=== PATIENT | male | born 1990 | race Caucasian/White ===

== ENCOUNTER 2020-01-10 21:38 | Emergency (ER) | payer BC ==
[2020-01-10] MEDS ORDERED: Diphtheria,Pertussis(Acell),Tetanus Vaccine 0.5 ML Syringe IM ONE (21:44)
--- NOTE | 2020-01-10 21:50 | EDM.PDOC ---
ED HPI GENERAL MEDICAL PROBLEM - General Chief Complaint: Laceration Stated Complaint: CUT FINGER Time Seen by Provider: 01/10/20 21:40 Source of Information: Reports: Patient History Limitations: Reports: No Limitations - History of Present Illness INITIAL COMMENTS - FREE TEXT/NARRATIVE: HISTORY AND PHYSICAL: History of present illness: Patient is a 29-year-old male who presents to the emergency room with complaints of a laceration across his right index finger. This does not involve the nailbed. He initially put some "quick clot" over it to stop the bleeding. He states he came in because he is going to have the baby shortly and did not want to "mess with it bleeding all the time". He denies any other bodily injury nor any systemic complaints. Unsure of his last tetanus update Review of systems: As per history of present illness and below otherwise all systems reviewed and negative. Past medical history: As per history of present illness and as reviewed below otherwise noncontributory. Surgical history: As per history of present illness and as reviewed below otherwise noncontributory. Social history: See social history for further information Family history: As per history of present illness and as reviewed below otherwise noncontributory. Physical exam: General: Developed and well-nourished 29-year-old male. Alert and oriented. Nontoxic-appearing and in no acute distress. HEENT: Atraumatic, normocephalic, pupils equal and reactive bilaterally, negative for conjunctival pallor or scleral icterus, mucous membranes moist, TMs normal bilaterally, throat clear, neck supple, nontender, trachea midline. No drooling or trismus noted. No meningeal signs. No hot potato voice noted. Lungs: Clear to auscultation, breath sounds equal bilaterally, chest nontender. Heart: S1S2, regular rate and rhythm without overt murmur Abdomen: Soft, nondistended, nontender. Skin: 1.5 cm laceration to the palmar surface of his right index finger. Other metcalf skin is intact, warm, dry. No lesions or rashes noted. Extremities: Atraumatic, moves all extremities per self without difficulty or deficits, negative for cords or calf pain. Neurovascular unremarkable. Neuro: Awake, alert, oriented. Cranial nerves II through XII unremarkable. Cerebellum unremarkable. Motor and sensory unremarkable throughout. Exam nonfocal. Notes: Area was thoroughly cleansed with chlorhexidine and wound wash. The quick clot material was removed from the skin. 1% lidocaine was used to anesthetize the area. Usual and customary procedures were followed for suture placement. #4 interrupted sutures were placed. Patient tolerated well. We discussed signs and symptoms that would prompt him to return to the emergency room. Follow-up and supportive care measures were reviewed and discussed. Voices understanding and is agreeable to plan of care. Denies any further questions or concerns at this time. Diagnostics: None Therapeutics: Lidocaine, Tdap Prescription: None Impression: Laceration Plan: Laceration care Definitive disposition and diagnosis as appropriate pending reevaluation and review of above. - Related Data Allergies Allergy/AdvReac Type Severity Reaction Status Date / Time No Known Allergies Allergy Verified 01/10/20 21:46 Home Meds: Home Meds . [No Known Home Meds] 01/10/20 [History] ED ROS GENERAL - Review of Systems Review Of Systems: Comprehensive ROS is negative, except as noted in HPI. ED EXAM, SKIN/RASH Exam: See Below ED SKIN PROCEDURES - Laceration/Wound Repair Right index finger Appearance: Subcutaneous, Linear Distal NVT: Neuro & Vascular Intact, No Tendon Injury Anesthetic Type: Local Local Anesthesia - Lidocaine (Xylocaine): 1% Plain Local Anesthetic Volume: 3cc Skin Prep: Chlorhexidine (Hibiciens), Saline, Sterile Drape Saline Irrigation (cc's): 50 Exploration/Debridement/Repair: Wound Explored, In a Bloodless Field, Explored to Base, No Foreign Material Found Closed with: Sutures Lac/Wound length In cm: 1.5 Suture Size: 4-0 (Chromic) # of Sutures: 4 Suture Type: Interrupted, Simple Drain Placement: No Sterile Dressing Applied: Provider Tetanus Status Addressed: Yes Complications: No Course - Orders/Labs/Meds Meds: Medications Discontinued Medications Generic Name Dose Route Start Last Admin Trade Name Mary Carmen PRN Reason Stop Dose Admin Lidocaine HCl 5 ml 01/10/20 21:39 Xylocaine-Mpf 1% INJECT 01/10/20 21:40 ONETIME ONE Departure - Departure Time of Disposition: 21:57 Disposition: Home, Self-Care 01 Clinical Impression: Laceration - Discharge Information Instructions: Laceration Care, Adult, Espk-by-Ftew Additional Instructions: The following information is given to patients seen in the emergency department who are being discharged to home. This information is to outline your options for follow-up care. We provide all patients seen in our emergency department with a follow-up referral. The need for follow-up, as well as the timing and circumstances, are variable depending upon the specifics of your emergency department visit. If you don't have a primary care physician on staff, we will provide you with a referral. We always advise you to contact your personal physician following an emergency department visit to inform them of the circumstance of the visit and for follow-up with them and/or the need for any referrals to a consulting specialist. The emergency department will also refer you to a specialist when appropriate. This referral assures that you have the opportunity for follow-up care with a specialist. All of these measure are taken in an effort to provide you with optimal care, which includes your follow-up. Under all circumstances we always encourage you to contact your private physician who remains a resource for coordinating your care. When calling for follow-up care, please make the office aware that this follow-up is from your recent emergency room visit. If for any reason you are refused follow-up, please contact the [facility] Emergency Depa rtment at and asked to speak to the emergency department charge nurse. [facility] [address] [place] [id number] [facility] [address] [place] [id number] Thank you for choosing the [facility] emergency department in [place] for your medical needs today. It was a pleasure caring for you. You were seen in the emergency department for laceration and sutures 1. Keep the area clean and dry. Continue to monitor for signs of infection. Sutures to be removed in 7-10 days. 2. Tylenol and/or ibuprofen as needed for pain management. 3. Please follow-up with your primary care provider in the next 1-2 days. Return to the ED as needed and as discussed.
== END 2020-01-10 22:25 | disposition home or self-care (01) ==
LOC: MW.ED 21:38
DX: S61.210A Laceration without foreign body of right index finger without damage to nail, initial encounter (principal); Z23 Encounter for immunization; W26.0XXA Contact with knife, initial encounter
CPT/HCPCS: 12001; 90471; 90715; 99282; J2001

== ENCOUNTER 2023-03-03 06:07 | Day surgery (SDC) | payer OTHER, BC ==
[~2023-03-03 06:07] MED LIST: Bupivacaine 0.5% 30 ML SDV ONE; Lactated Ringers 1,000 ML IV SCH; Lidocaine 2% 5 ML SDV ONE; Scopolamine 1.5 MG Transdermal Patch TOP ONE; fentaNYL 100 MCG/2 ML SDV ONE
[2023-03-03] MEDS ORDERED: Ondansetron 4 MG/2 ML SDV IVPUSH PRN (06:39)
[2023-03-03] MEDS ORDERED: Morphine 2 MG/ML SYRINGE IVPUSH PRN (06:39)
[2023-03-03] MEDS ORDERED: fentaNYL 50 MCG/ML SDV IVPUSH PRN (06:39)
[2023-03-03] MEDS ORDERED: Naloxone 0.4 MG/ML SDV IVPUSH PRN (06:39)
[2023-03-03] MEDS ORDERED: Metoclopramide 10 MG/2 ML SDV IVPUSH PRN (06:39)
[2023-03-03] MEDS ORDERED: Albuterol 0.083% 2.5 MG/3 ML Neb Soln NEB PRN (06:39)
[2023-03-03] MEDS ORDERED: droPERidol 5 MG/2 ML SDV IVPUSH PRN (06:39)
[2023-03-03] MEDS ORDERED: HYDROmorphone 1 MG/ML Syringe IVPUSH PRN (06:39)
[2023-03-03] MEDS ORDERED: ePHEDrine 50 MG/ML SDV ONE (06:41)
[2023-03-03] MEDS ORDERED: Phenylephrine HCl 0.5 MG/5 ML AMP ONE ×2 (06:41→07:50)
[2023-03-03] MEDS ORDERED: Water For Injection, Sterile 20 ML ONE (06:43)
[2023-03-03] MEDS ORDERED: ceFAZolin 2 GM Vial ONE (06:54)
[2023-03-03] MEDS ORDERED: Lidocaine 1% with EPINEPHrine 1:100,000 50 ML MDV ONE (07:32)
[2023-03-03] MEDS ORDERED: propofoL 50 ML ONE ×2 (07:51)
[2023-03-03] MEDS ORDERED: Ondansetron 4 MG/2 ML SDV ONE ×2 (08:03→08:04)
[2023-03-03] MEDS ORDERED: Sugammadex Sodium 200 MG/2 ML VIAL ONE (08:03)
[2023-03-03] MEDS ORDERED: Rocuronium Bromide 50 MG/5 ML Syringe ONE ×2 (08:03)
[2023-03-03] MEDS ORDERED: Lidocaine 2% 100 MG/5 ML Syringe ONE (08:04)
[2023-03-03] MEDS ORDERED: Metoclopramide 10 MG/2 ML SDV ONE (08:04)
[2023-03-03] MEDS ORDERED: Ketorolac 30 MG/ML SDV ONE (08:24)
[2023-03-03] MEDS ORDERED: Tranexamic Acid 1,000 MG/10 ML Vial ONE (08:41)
[2023-03-03] MEDS ORDERED: Dexmedetomidine 200 MCG/2 ML SDV ONE (08:42)
[2023-03-03] MEDS ORDERED: Dexamethasone 4 MG/ML 5 ML MDV ONE (08:42)
[2023-03-04] MEDS ORDERED: Ondansetron 4 MG/2 ML SDV ONE (12:25)
[2023-03-04] MEDS ORDERED: Lidocaine 2% 100 MG/5 ML Syringe ONE (12:26)
== END 2023-03-03 10:26 | disposition home or self-care (01) ==
LOC: MW.SDS 06:07
PROVIDERS: ATTEND Orthopaedic Surgery
DX: S42.022A Displaced fracture of shaft of left clavicle, initial encounter for closed fracture (principal); F17.290 Nicotine dependence, other tobacco product, uncomplicated; Z79.899 Other long term (current) drug therapy; Z88.0 Allergy status to penicillin; Z98.890 Other specified postprocedural states; V89.2XXA Person injured in unspecified motor-vehicle accident, traffic, initial encounter
CPT/HCPCS: 23515; 76000; J0131; J0690; J1100; J1885; J2370; J2405; J2704; J2765; J3010; J3490; J7120